=== PATIENT | male | born 1995 | race American Indian/Alaskan Native ===

== ENCOUNTER 2024-01-21 23:29 | Emergency (ER) | payer MEDICAID, SELFPAY ==
[2024-01-21 23:30] VITALS: BMI 25.8
--- NOTE | 2024-01-21 23:33 | PC.NURSE ---
PT WALKED OUT OF THE ER PRIOR TO BEING TRIAGE BY PROVIDER.
== END 2024-01-21 23:33 | disposition left against medical advice (07) ==
PROVIDERS: Emergency Provider Emergency Medicine
DX: Z53.21 Procedure and treatment not carried out due to patient leaving prior to being seen by health care provider (principal)